=== PATIENT | female | born 1980 | race Hispanic/Latino ===

== ENCOUNTER 2019-08-05 19:30 | Emergency (ER) | payer SELFPAY ==
[2019-08-05 20:22] VITALS: BP 109/60
== END 2019-08-05 20:40 | disposition left against medical advice (07) ==
LOC: ED 19:30
DX: M54.2 Cervicalgia (principal); M54.9 Dorsalgia, unspecified; Z53.21 Procedure and treatment not carried out due to patient leaving prior to being seen by health care provider